=== PATIENT | female | born 1975 | race Two or more races ===

== ENCOUNTER 2019-07-09 12:20 | Emergency (ER) | payer BC ==
[2019-07-09 12:26] VITALS: BP 158/75; BMI 28.3
--- NOTE | 2019-07-09 12:28 | PDOC ---
History of Present Illness - General Chief Complaint: Respiratory Stated Complaint: COUGH, SORE THROAT Time Seen by Provider: 07/09/19 12:27 - History of Present Illness Initial Comments: HPI: 44 y/o female presenting to ER complaining of fevers, chills, nonproductive cough, headache, and generalized body aches for the past two days. Pt's daughter was diagnosed with influenza on 06 Jul 2018 at [facility] ED. Was not able to start Tamiflu because the pharmacy did not have the medication in stock. Pt tried Tylenol yesterday with transient relief. Did not take any medication today. Tolerating PO well. Pt's , son, and daughter are present in the department with similar symptoms. Medical Hx: - Denies past medical history. Denies prescription medications. Surgical Hx: - Pt denies past surgical history. Review of Systems: In addition to that documented in the HPI above, the additional ROS was obtained : Constitutional- Endorses fevers and chills ENMT- Denies sore throat CV- Denies chest pain Resp- Denies SOB GI- Denies vomiting or diarrhea - Denies dysuria, hematuria, or urinary frequency Physical Examination: Vital signs and nursing notes reviewed. Constitutional- Puny appearing adult female in no acute distress but mild obvious discomfort. Found semi-fowlers on hospital bed. Answered all questions appropriately and completely. Head- Normocephalic. No obvious external signs of trauma. Eyes- Sclerae white. Conjunctiva moist and not injected. Nose- No nasal discharge. Throat- Mild posterior oropharyngeal erythema without exudate. No inflammation, swelling, exudate, or lesions. Neck- Supple, trachea is midline. Cardiovascular / Chest- Tachycardic rate with regular rhythm. No murmur, rubs, clicks, or gallops. Peripheral pulses- radial pulses full. Respiratory- Breathing unlabored. Equal chest rise and fall. Clear to auscultation bilaterally. No stridor, no wheezing, no rhonchi. Gastrointestinal- abdomen is soft, non-tender, non-distended. Neuro- Alert and oriented x4. Moving all four extremities spontaneously. Skin- Warm, dry, and intact. Psych- Affect- appropriate. Mood- normal. Speech was non-labored, non- pressured. MDM: 44 y/o female presenting with influenza like symptoms in setting of known close contact exposure. Febrile at triage. Vitals remarkable for tachycardia without hypotension. Physical exam as described above. Suspect likely influenza infection. Ordered Tylenol for fever and discomfort. Tamiflu is not indicated for this pt, so will not test for influenza. Discussed physical exam findings with pt. Answered all questions. Provided return precautions. pt expressed verbal understanding and agreement with plan to discharge home with outpatient follow up as needed. Encouraged isolation, OTC Acetaminophen/ NSAID, and PO hydration. Zev Suh M.D., PGY2 Emergency Medicine Resident Past History - Past Medical History Allergies/Adverse Reactions: Allergies Allergy/AdvReac Type Severity Reaction Status Date / Time No Known Allergies Allergy Verified 07/09/19 12:23 Home Medications: Ambulatory Orders Acetaminophen W/ Codeine #3 [Tylenol # 3 -] 1 tab PO Q4H PRN 07/09/19 Ibuprofen 800 mg PO ASDIR 07/09/19 COPD: No - Psycho Social/Smoking Cessation Hx Smoking History: Never smoked Have you smoked in the past 12 months: No Information on smoking cessation initiated: No Hx Alcohol Use: No *Physical Exam - Vital Signs Last Vital Signs Temp Pulse Resp BP Pulse Ox 102.6 F H 113 H 20 158/75 97 07/09/19 12:20 07/09/19 12:20 07/09/19 12:20 07/09/19 12:20 07/09/19 12:20 Discharge - Discharge Information Problems reviewed: Yes Clinical Impression/Diagnosis: Influenza-like illness, Exposure to influenza Condition: Good Disposition: HOME - Admission No - Follow up/Referral Referrals: Dhruv Blum MD [Primary Care Provider] - - Patient Discharge Instructions Patient Printed Discharge Instructions: DI for Influenza -- Adult, Acetaminophen Additional Instructions: You were seen today for flu-like symptoms. It is very likely that you also have the flu given your family member that tested positive at [facility] ED. You fall outside of the guidelines of pt's that should receive Tamiflu. It likely would not help your symptoms. Make sure to stay well hydrated over the next several days. You can take over the counter Tylenol or Advil as needed for pain and fever. Take as directed on the package insert. Do not exceed the recommended dosage. You need to avid children, women, or immunocompromised persons while you are febrile. The flu is highly contagious. Please read the attached paperwork on the flu. Follow up with your primary care doctor in the next week or as needed. You will need to call to make an appointment. The number is included in this packet. A copy of todays results are attached to this packet. Take it to the appointment so your doctor can review them. Go to the nearest emergency department if your condition worsens or you feel like you need additional emergency evaluation. Print Language: BURMESE - Post Discharge Activity Work/Back to School Note: Back to Work
[2019-07-09] MEDS ORDERED: ACETAMINOPHEN 500 MG TABLET (FP) PO ONE (12:39)
[2019-07-09] MEDS ORDERED: ACETAMINOPHEN 325 MG TABLET (FP) ONE (12:42)
[2019-07-09 13:27] VITALS: PULSE 101; TEMP 100.2
--- NOTE | 2019-07-09 13:39 | PDOC ---
Attending Attestation - Resident Resident Name: Zev Suh - ED Attending Attestation I have performed the following: I have examined & evaluated the patient, The case was reviewed & discussed with the resident, I agree w/resident's findings & plan - HPI HPI: 07/09/19 13:38 Healthy 44-year-old female with no significant past medical history presents with fever/chills/myalgias/decreased appetite since yesterday in the setting of known exposure to influenza via her daughter. No other complaints, no recent travel, did receive flu vaccination this year. - Physicial Exam PE: 07/09/19 13:38 Febrile, slight tachycardia. Fever improved/resolved after Tylenol Well-appearing seated in stretcher speaking full sentences Oropharynx clear, neck supple Lungs are clear without wheezing or focally decreased breath sounds Heart was regular slight tachycardia, abdomen benign - Medical Decision Making 07/09/19 13:38 Healthy 44-year-old female vaccinated against influenza this year presents with influenza-like illness after known exposure, no acute respiratory distress and no red flags on history or physical exam. No indication for emergent testing, imaging, or treatment Options discussed, agree with discharge plan and understand return criteria
== END 2019-07-09 13:28 | disposition home or self-care (01) ==
LOC: SUPCPDRO 12:20 → FER 12:20
DX: J11.1 Influenza due to unidentified influenza virus with other respiratory manifestations (principal); Z20.818 Contact with and (suspected) exposure to other bacterial communicable diseases
CPT/HCPCS: 99282-25

== ENCOUNTER 2021-11-06 12:49 | Emergency (ER) | payer BC ==
[2021-11-06 12:56] VITALS: BMI 29.8
[2021-11-06 13:30] LABS: HEMATOCRIT 37.1 % (32.4-45.2); MCH 31.2 pg (25.7-33.7); MEAN CELL VOLUME 89.1 fl (80-96); MEAN PLT VOLUME 7.6 fl (7.5-11.1); PLATELET COUNT 232.6 10^3/uL (134-434); RBC 4.16 10^6/uL (3.60-5.2); RDW 13.5 % (11.6-15.6); WHITE BLOOD COUNT 7.3 10^3/uL (4.0-10.8)
[2021-11-06 13:37] LABS: BILIRUBIN,TOTAL 0.6 mg/dl (0.2-1); CALCIUM 9.1 mg/dl (8.5-10); CREATININE 0.6 mg/dl (0.55-1.3); EPITHELIAL CELLS FEW /hpf; TOT PROT 7.5 g/dl (6.4-8.2)
[2021-11-06] MEDS ORDERED: SODIUM CHLORIDE 0.9% 500 ML INFUS.BAG IV ONE (13:57)
[2021-11-06 16:54] VITALS: BP 118/61; PULSE 50; TEMP 98.9
== END 2021-11-06 17:03 | disposition home or self-care (01) ==
LOC: FER 12:49
DX: R31.9 Hematuria, unspecified (principal)
CPT/HCPCS: 36415; 74176-TC; 76775-TC; 80053; 81003; 81015; 85025; 87086; 99284-25

== ENCOUNTER 2021-11-08 21:04 | Emergency (ER) | payer BC ==
[2021-11-08 21:15] VITALS: BP 152/88; PULSE 59; TEMP 97.8; BMI 30.2
== END 2021-11-08 22:43 | disposition home or self-care (01) ==
LOC: JER 21:04
DX: B02.9 Zoster without complications (principal)
CPT/HCPCS: 99281-25

== ENCOUNTER 2023-09-14 10:43 | Emergency (ER) | payer BC ==
[2023-09-14 11:00] VITALS: TEMP 98.2; BMI 30.2
[2023-09-14] MEDS ORDERED: ACETAMINOPHEN INJECTION 100 ML IVPB ONE (12:33)
[2023-09-14] MEDS ORDERED: METOCLOPRAMIDE HCL INJECTION 10 MG/2 ML VIAL ONE (12:33)
[2023-09-14] MEDS: ACETAMINOPHEN 1000 MG/100 ML BAG IVPB ONE (12:46)
[2023-09-14] MEDS: SODIUM CHLORIDE 1,000 ML IV ONE (12:46)
[2023-09-14] MEDS: METOCLOPRAMIDE HCL INJECTION 10 MG/2 ML VIAL IVPUSH ONE (12:47)
[2023-09-14 13:09] LABS: EOS % 11.2 % (0-4.5); HEMATOCRIT 37.8 % (32.4-45.2); HEMOGLOBIN 12.7 GM/dL (10.7-15.3); LYMPH % 19.6 % (8-40); MCH 30.2 pg (25.7-33.7); MCHC 33.5 g/dl (32.0-36.0); MEAN CELL VOLUME 90.2 fl (80-96); MEAN PLT VOLUME 8.1 fl (7.5-11.1); NEUT % 64.2 % (42.8-82.8); PLATELET COUNT 198 10^3/uL (134-434); RBC 4.19 M/mm3 (3.60-5.2); RDW 12.8 % (11.6-15.6); WHITE BLOOD COUNT 7.7 K/mm3 (4.0-10.0)
[2023-09-14 13:19] LABS: POTASSIUM 4.4 mmol/L (3.5-5.1)
[2023-09-14 13:22] LABS: ALBUMIN 3.9 g/dl (3.4-5.0); BLOOD UREA NITROGEN 13.4 mg/dL (7-18); CALCIUM 9.2 mg/dL (8.5-10.1)
[2023-09-14 13:24] LABS: CREATININE 0.6 mg/dL (0.55-1.3)
[2023-09-14 13:26] LABS: BILIRUBIN,TOTAL 0.2 mg/dL (0.2-1); TOT PROT 8.1 g/dl (6.4-8.2)
[2023-09-14 14:44] VITALS: BP 131/82; PULSE 67; RESP 18
== END 2023-09-14 14:44 | disposition home or self-care (01) ==
LOC: JER 10:43
PROC: 3E033NZ Introduction of Analgesics, Hypnotics, Sedatives into Peripheral Vein, Percutaneous Approach (ICD-10-PCS; principal; 2023-09-14)
PROC: 3E033GC Introduction of Other Therapeutic Substance into Peripheral Vein, Percutaneous Approach (ICD-10-PCS; 2023-09-14)
PROC: 3E0337Z Introduction of Electrolytic and Water Balance Substance into Peripheral Vein, Percutaneous Approach (ICD-10-PCS; 2023-09-14)
DX: G44.209 Tension-type headache, unspecified, not intractable (principal); R55 Syncope and collapse
CPT/HCPCS: 36415; 70450-TC; 80053; 84484; 84703; 85025; 93005; 93010; 99285-25; J0131